=== PATIENT | female | born 1955 | race Hispanic/Latino ===

== ENCOUNTER 2016-10-25 14:54 | Emergency (ER) | payer SELFPAY ==
[2016-10-25] MEDS ORDERED: Ketorolac Tromethamine 60 MG/2 ML VIAL ONE (15:21)
[2016-10-25] MEDS ORDERED: predniSONE 20 MG TAB ONE (16:05)
--- NOTE | 2016-10-25 16:23 | ERRECORD ---
[facility] EMERGENCY RECORD HPI SHOULDER (16:06 JPIP) CHIEF COMPLAINT: Patient presents for evaluation of pain, to the right shoulder. HISTORIAN: History provided by patient. MECHANISM OF INJURY: Unknown mechanism. LOCATION: Symptoms are localized, most severe in the acromioclavicular joint, Patient is right handed. QUALITY: Pain is dull in nature. SEVERITY: Current severity of pain rated as 10/10. TIME COURSE: Sudden onset of symptoms, 1, hours prior to arrival, There has been no change in the patient's symptoms over time, are constant. ASSOCIATED WITH: No associated clavicle pain, No associated coolness to touch, Associated with decreased range of motion, to the right shoulder, Associated with decreased use, No associated distal neuro complaint, No associated erythema, No associated open wounds, No associated swelling, No associated warmth. EXACERBATED BY: Patient's condition exacerbated by movement. RELIEVED BY: Patient's condition relieved by nothing. ROS (16:09 JPIP) CARDIOVASCULAR: Historian denies chest pain. RESPIRATORY: Historian denies cough, denies shortness of breath. GI: Historian denies abdominal pain, denies nausea, denies vomiting. GENITOURINARY FEMALE: Historian denies dysuria, denies frequency, denies urgency. MUSCULOSKELETAL: Historian reports arthralgias, denies back pain. SKIN: Historian denies rash, denies skin changes, denies skin lesions. NEUROLOGIC: Historian denies paresthesias. NOTES: All systems reviewed, negative except as described above. PAST MEDICAL HISTORY MEDICAL HISTORY: Past medical history includes pulmonary disease, asthma, Flu vaccine not up to date,Tetanus immunization up to date,. Pneumococcal vaccine not up to date, Past medical history includes history of hypertension, which has been treated, Past medical history includes musculoskeletal disorder, osteoarthritis, rheumatoid arthritis, FIBROMYALGIA, CARPAL TUNNEL, "POOR CIRCULATION TO FEET". NEUROPATHY. REVIEWED 10/25/16. (15:14 LGIB) FEMALE SURGICAL HISTORY: Surgical history of cholecystectomy, Surgical history of tubal ligation, CARPAL TUNNEL SURGERY. REVIEWED 10/26/16. (15:14 LGIB) PSYCHIATRIC HISTORY: No previous psychiatric history. REVIEWED 10/25/16. (15:14 LGIB) SOCIAL HISTORY: Patient denies alcohol use, Patient denies drug use, Patient has no smoking history. (15:14 LGIB) &a-1R&a+25V*p+0X*[id number]*c202B*c15G*c2P*p-0X&a-25V&a+1R Name: Ajit Slater : 1955 F61 MedRec: [id number] AcctNum: [id number] Prepared: Tere Oct 25, 2016 16:19 by Interface Page 1 of 4 pMD [facility] EMERGENCY RECORD FAMILY HISTORY: Unknown family histroy, Paternal history of cardiac disease:, Family history includes coronary artery disease, father, Family history includes cerebral vascular accident, mother, Family history includes diabetes, sibling. REVIEWED 08/23/15. (15:14 LGIB) NOTES: Nursing records reviewed, Old chart reviewed, Medication list reviewed. (16:10 JPIP) KNOWN ALLERGIES No Known Allergies CURRENT MEDICATIONS (15:45 LGIB) Advair Diskus: BLISTER, WITH INHALATION DEVICE : Strength - 250 mcg-50 mcg/Dose : INHALATION Patient Dose: 2 puff(s) 2 times a day. meloxicam: TABLET : Strength - 7.5 mg : ORAL Patient Dose: 1 tab(s) Oral. potassium chloride: TABLET, EXT RELEASE, PARTICLES/CRYSTALS : Strength - 20 mEq : ORAL Patient Dose: 1 tab(s) Oral once a day. Proventil HFA: HFA AEROSOL WITH ADAPTER (GRAM) : Strength - 90 mcg : INHALATION Patient Dose: 1 puff(s) Oral. ranitidine HCl: TABLET : Strength - 300 mg : ORAL Patient Dose: 1 tab(s) Oral once a day. Mobic: TABLET : Strength - 7.5 mg : ORAL Patient Dose: 1 tab(s) Oral 1 to 2 times a day.as needed for pain. methotrexate sodium: TABLET : Strength - 2.5 mg : ORAL Patient Dose: unk mg Oral. VITAL SIGNS VITAL SIGNS: BP: 167/101, Pulse: 91, Resp: 22, Temp: 98.4 (Oral), Pain: 10, O2 sat: 96 on Room Air, Time: 10/25/2016 15:11. (15:11 LGIB) Pain: 6, Time: 10/25/2016 15:55. (15:55 LGIB) BP: 120/80, Pulse: 88, Resp: 18 (Non-Labored), Pain: 5, O2 sat: 95 on Room Air, Time: 10/25/2016 16:15. (16:15 LGIB) PHYSICAL EXAM (16:09 JPIP) CONSTITUTIONAL: Vital Signs Reviewed, Patient afebrile, Pulse normal, Blood pressure, hypertensive, Respiratory rate normal, Patient appears, in moderate pain distress, Patient alert and oriented to person, place and time, Nursing notes reviewed. HEAD: Head exam included findings of head atraumatic, &a-1R&a+25V*p+0X*m2615A*c202B*c15G*c2P*p-0X&a-25V&a+1R Name: Ajit Slater : 1955 F61 MedRec: [id number] AcctNum: [id number] Prepared: Tere Oct 25, 2016 16:19 by Interface Page 2 of 4 pMD [facility] RECORD normocephalic. EYES: Eye exam included findings of eyelids normal to inspection, Conjunctiva normal, Sclera normal, no periorbital ecchymosis, no periorbital edema, no periorbital erythema. NECK: Neck exam included findings of normal range of motion. RESPIRATORY CHEST: Respiratory exam included findings of no respiratory distress, Breath sounds clear, No wheezing, No rales, No rhonchi, Breath sounds not absent, Breath sounds not diminished. CARDIOVASCULAR: Cardiovascular exam included findings of heart rate regular rate and rhythm, Heart sounds normal. ABDOMEN FEMALE: Abdominal exam included findings of abdomen nontender, Liver normal, Spleen normal. UPPER EXTREMITY: Right clavicle exam normal, no obvious deformity, no swelling, no tenderness, Right shoulder exam included findings of, tenderness, active range of motion abnormal, passive range of motion abnormal, capillary refill less than 2 seconds, maximum tenderness over the R AC joint. NEURO: Wayne coma scale 15, Neuro exam findings include patient oriented to person, place and time. SKIN: Skin exam included findings of skin warm, dry, and normal in color. PSYCHIATRIC: Psychiatric exam included findings of patient oriented to person place and time, Normal affect. RADIOLOGYINTERPRETATION (15:41 JPIP) UPPER EXTERMITIES: Radiological interpretation of, the right shoulder shows, no fracture, no dislocation, no foreign body, however, Degenerative joint disease noted, nl ribs, nl lung. MIDDLE CARD TENDER: Preliminary review of x-rays by, ED Physician. MEDICATION ADMINISTRATION SUMMARY Drug Name: Spencer, Dose Ordered: 10 mg, Route: Oral, Status: Canceled, Time: 15:46 10/25/2016, Drug Name: predniSONE oral, Dose Ordered: 60 mg, Route: Oral, Status: Given, Time: 16:16 10/25/2016, Drug Name: Toradol intramuscular, Dose Ordered: 60 mg, Route: Intramuscular, Status: Given, Time: 15:24 10/25/2016, Detailed record available in Medication Service section. PROBLEM LIST No recorded problems DIAGNOSIS (16:05 JPIP) FINAL: PRIMARY: shoulder pain, ADDITIONAL: RHEUMATOID ARTHRITIS UNSPECIFIED - exacerbation. PRESCRIPTION (16:04 JPIP) &a-1R&a+25V*p+0X*[id number]*c202B*c15G*c2P*p-0X&a-25V&a+1R Name: Ajit Slater : 1955 F61 MedRec: [id number] AcctNum: [id number] Prepared: MonOct 25, 2016 16:19 by Interface Page 3 of 4 pMD [facility] RECORD Medrol (Lei): TABLET, DOSE PACK : 4 mg : ORAL : Quantity: 1 Unit: tab(s) Route: ORAL Schedule: See Notes Dispense: 1 May substitute. Refills: No Refills . NOTES: Follow schedule on Dose Pack No refills. DISPOSITION PATIENT: Disposition Type: Discharge, Disposition: *Discharge Home, Condition: Good. (16:05 JPIP) Patient left the department. (16:17 LGIB) Serna: JPIP=DO Aguilar Joseph LGIB=NI Weeks, Mildred &a-1R&a+25V*p+0X*[id number]*c202B*c15G*c2P*p-0X&a-25V&a+1R Name: Ajit Slater : 1955 F61 MedRec: [id number] AcctNum: [id number] Prepared: sukhwinder Oct 25, 2016 16:19 by Interface Page 4 of 4 pMD MTDD
--- NOTE | 2016-10-25 21:51 | RAD ---
RIGHT SHOULDER THREE VIEWS 10/25/16 No fracture, dislocation, or AC joint widening was seen. Some mild degenerative changes are seen in the AC joint. There are no periarticular calcifications. The adjacent lung is clear. IMPRESSION: Minor degenerative changes of the AC joint. POS: HOME
== END 2016-10-25 16:16 | disposition home or self-care (01) ==
LOC: BURERS 14:54
DX: M06.9 Rheumatoid arthritis, unspecified (principal); J45.909 Unspecified asthma, uncomplicated; I10 Essential (primary) hypertension
CPT/HCPCS: 96372; J1885; J7506

== ENCOUNTER 2016-11-30 20:26 | Emergency (ER) | payer SELFPAY ==
[2016-11-30] MEDS ORDERED: Triamcinolone 40 MG/ML VIAL ONE (20:50)
[2016-11-30] MEDS ORDERED: hydrOXYzine 25 MG TAB ONE (20:50)
[2016-11-30 21:11] LABS: #Basophils 0.1 thou/uL (0.0-0.2); #Eosinphils 0.3 thou/uL (0.0-0.7); #Monocytes 0.8 thou/uL (0.11-0.59); #Neutrophils 6.4 thou/uL (1.40-6.50); %Eosinophils 2.7 % (0.0-10.0); %Monocytes 8.4 % (0.0-10.0); Hematocrit 40.3 % (36.0-47.0); Mean Platelet Volume 7.1 fL (7.4-10.4); Red Blood Cell (RBC) Count 4.24 mill/uL (4.20-5.40); White Blood Cell (WBC) Count 9.6 thou/uL (4.8-10.8)
[2016-11-30 21:34] LABS: Anion Gap 14 mmol/L (10-20); BUN (Urea Nitrogen) 12 mg/dL (9.8-20.1); Calc. Creatinine Clearance 0 mL/min (70-130); Calcium 8.5 mg/dL (7.8-10.44); Carbon Dioxide 23 mmol/L (23-31); Chloride 110 mmol/L (98-107); Estimated GFR-MDRD 78
[2016-11-30] MEDS ORDERED: Triamcinolone 0.1% Cream 15 GM TUBE TOP SCH (22:00)
[2016-11-30] MEDS ORDERED: methylPREDNISolone Acetate 40 mg/ml Vial ONE (22:11)
== END 2016-11-30 22:28 | disposition home or self-care (01) ==
LOC: BURERS 20:26
DX: T78.40XA Allergy, unspecified, initial encounter (principal); M25.562 Pain in left knee; M25.561 Pain in right knee; J45.909 Unspecified asthma, uncomplicated; I10 Essential (primary) hypertension; X58.XXXA Exposure to other specified factors, initial encounter
CPT/HCPCS: 36415; 80048; 85025; 96372; J1030; J3301

== ENCOUNTER 2016-12-08 20:41 | Emergency (ER) | payer SELFPAY ==
[2016-12-08] MEDS ORDERED: Fluorescein Opthalmic Strip ONE (20:50)
[2016-12-08] MEDS ORDERED: Tetracaine HCl 0.5% Ophth Soln 2 ML Bottle ONE (20:50)
[2016-12-08] MEDS ORDERED: Cyclopentolate 1% Opth Drop 2 ML BOT ONE (21:03)
== END 2016-12-08 21:16 | disposition home or self-care (01) ==
LOC: BURERS 20:41
DX: S05.01XA Injury of conjunctiva and corneal abrasion without foreign body, right eye, initial encounter (principal); J45.909 Unspecified asthma, uncomplicated; I10 Essential (primary) hypertension; M19.90 Unspecified osteoarthritis, unspecified site; F17.290 Nicotine dependence, other tobacco product, uncomplicated; X58.XXXA Exposure to other specified factors, initial encounter
CPT/HCPCS: 99283

== ENCOUNTER 2017-01-04 19:10 | Emergency (ER) | payer SELFPAY | END 2017-01-04 19:29 | disposition home or self-care (01) | LOC: BURERS 19:10 | DX: S01.512A Laceration without foreign body of oral cavity, initial encounter (principal); J45.909 Unspecified asthma, uncomplicated; I10 Essential (primary) hypertension; M06.9 Rheumatoid arthritis, unspecified; F17.210 Nicotine dependence, cigarettes, uncomplicated; X58.XXXA Exposure to other specified factors, initial encounter ==

== ENCOUNTER 2017-02-21 18:21 | Emergency (ER) | payer SELFPAY ==
[2017-02-21] MEDS ORDERED: predniSONE 20 MG TAB ONE (18:38)
[2017-02-21] MEDS ORDERED: Promethazine HCl 25 MG/ML VIAL ONE (18:38)
== END 2017-02-21 19:40 | disposition home or self-care (01) ==
LOC: BURERS 18:21
DX: M06.9 Rheumatoid arthritis, unspecified (principal); J45.909 Unspecified asthma, uncomplicated; I10 Essential (primary) hypertension; M19.90 Unspecified osteoarthritis, unspecified site; F17.210 Nicotine dependence, cigarettes, uncomplicated
CPT/HCPCS: 96372; J1170; J2550; J7506

== ENCOUNTER 2017-02-22 18:22 | Emergency (ER) | payer SELFPAY ==
[2017-02-22] MEDS ORDERED: predniSONE 20 MG TAB ONE (18:37)
[2017-02-22] MEDS ORDERED: diphenhydrAMINE HCl 25 MG CAP ONE (18:37)
[2017-02-22] MEDS ORDERED: Ketorolac Tromethamine 60 MG/2 ML VIAL ONE (18:38)
[2017-02-22 18:50] LABS: #Basophils 0.1 thou/uL (0.0-0.2); #Eosinphils 0.1 thou/uL (0.0-0.7); #Lymphocytes 2.8 thou/uL (1.20-3.40); #Monocytes 1.4 thou/uL (0.11-0.59); %Basophils 0.6 % (0.0-1.0); %Eosinophils 0.3 % (0.0-10.0); %Lymphocytes 14.4 % (21.0-51.0); %Monocytes 7.5 % (0.0-10.0); %Neutrophils 77.3 % (42.0-75.0); Mean Corpuscular HGB CONC 32.3 g/dL (32.0-36.0); Mean Corpuscular Hemoglobin 31.6 pg (27.0-31.0); Mean Corpuscular Volume 97.9 fl (81.0-99.0); Mean Platelet Volume 8.8 fL (7.4-10.4); Platelet Count 243 thou/uL (130-400); RBC Distribution Width 14.5 % (11.5-14.5); Red Blood Cell (RBC) Count 4.12 mill/uL (4.20-5.40); White Blood Cell (WBC) Count 19.4 thou/uL (4.8-10.8)
[2017-02-22 18:56] LABS: INR-International Normal Ratio 0.9; Prothrombin Time 12.4 SEC (12.0-14.7)
[2017-02-22 18:57] LABS: PTT 22.7 SEC (22.9-36.1)
[2017-02-22 19:08] LABS: ALT (SGPT) 23 U/L (8-55); AST (SGOT) 14 U/L (5-34); Albumin 3.8 g/dL (3.4-4.8); Alkaline Phosphatase 75 U/L (40-150); Anion Gap 18 mmol/L (10-20); BUN (Urea Nitrogen) 21 mg/dL (9.8-20.1); Bilirubin, Total 0.2 mg/dL (0.2-1.2); Calc. Creatinine Clearance 0 mL/min (70-130); Calcium 8.5 mg/dL (7.8-10.44); Carbon Dioxide 21 mmol/L (23-31); Chloride 110 mmol/L (98-107); Estimated GFR-MDRD 75; Globulin 2.7 g/dL (2.4-3.5); Glucose 162 mg/dL (80-115); Potassium 3.6 mmol/L (3.5-5.1); Protein, Total 6.5 g/dL (6.0-8.3); Sodium 145 mmol/L (136-145)
== END 2017-02-22 19:20 | disposition home or self-care (01) ==
LOC: BURERS 18:22
DX: S60.861A Insect bite (nonvenomous) of right wrist, initial encounter (principal); J45.909 Unspecified asthma, uncomplicated; I10 Essential (primary) hypertension; M06.9 Rheumatoid arthritis, unspecified; G62.9 Polyneuropathy, unspecified; F17.210 Nicotine dependence, cigarettes, uncomplicated; W57.XXXA Bitten or stung by nonvenomous insect and other nonvenomous arthropods, initial encounter
CPT/HCPCS: 36415; 80053; 83690; 85025; 85610; 85730; 96372; J1885; J7506

== ENCOUNTER 2017-03-09 16:34 | Emergency (ER) | payer SELFPAY ==
[2017-03-09] MEDS ORDERED: predniSONE 20 MG TAB ONE (16:57)
[2017-03-09] MEDS ORDERED: Promethazine HCl 25 MG/ML VIAL ONE (16:57)
[2017-03-09] MEDS ORDERED: Ketorolac Tromethamine 30 MG/ML VIAL ONE (17:45)
[2017-03-09] MEDS ORDERED: Sulfameth/Trimethoprim DS 800-160mg TAB ONE (18:49)
== END 2017-03-09 19:01 | disposition home or self-care (01) ==
LOC: BURERS 16:34
DX: M54.41 Lumbago with sciatica, right side (principal); M06.9 Rheumatoid arthritis, unspecified; I10 Essential (primary) hypertension; J45.909 Unspecified asthma, uncomplicated; G62.9 Polyneuropathy, unspecified; F17.210 Nicotine dependence, cigarettes, uncomplicated
CPT/HCPCS: 96372; J1170; J1885; J2550; J7506

== ENCOUNTER 2017-03-11 14:45 | Emergency (ER) | payer SELFPAY ==
[~2017-03-11 14:45] MED LIST: Iopamidol 370 76% 100 ML VIAL ONE
[2017-03-11] MEDS ORDERED: Nitroglycerin 0.4 MG TAB (25 Tab Bottle) ONE (15:12)
[2017-03-11] MEDS ORDERED: Furosemide 40 MG/4 ML VIAL ONE (15:13)
[2017-03-11 15:25] LABS: #Basophils 0.1 thou/uL (0.0-0.2); #Eosinphils 0.2 thou/uL (0.0-0.7); #Lymphocytes 2.5 thou/uL (1.20-3.40); #Monocytes 0.5 thou/uL (0.11-0.59); #Neutrophils 9.8 thou/uL (1.40-6.50); %Basophils 0.7 % (0.0-1.0); %Eosinophils 1.7 % (0.0-10.0); %Lymphocytes 19.2 % (21.0-51.0); %Neutrophils 74.5 % (42.0-75.0); Hemoglobin 12.6 g/dL (12.0-16.0); Mean Corpuscular HGB CONC 32.9 g/dL (32.0-36.0); Mean Corpuscular Hemoglobin 31.8 pg (27.0-31.0); Mean Corpuscular Volume 96.6 fl (81.0-99.0); Mean Platelet Volume 9.4 fL (7.4-10.4); Platelet Count 243 thou/uL (130-400); RBC Distribution Width 14.6 % (11.5-14.5); Red Blood Cell (RBC) Count 3.96 mill/uL (4.20-5.40); White Blood Cell (WBC) Count 13.1 thou/uL (4.8-10.8)
[2017-03-11 15:39] LABS: CKMB 1.1 ng/mL (0-6.6); Troponin I Less than 0.010 ng/mL (< 0.028)
[2017-03-11 15:53] LABS: Base Excess 2.8 mEq/L (-2 - +2); Hemoglobin (Hb) 11.9 g/dL (11.7-16.0)
[2017-03-11 16:04] LABS: PTT 26.6 SEC (22.9-36.1); Prothrombin Time 12.9 SEC (12.0-14.7)
[2017-03-11 16:05] LABS: D-Dimer Test 1.24 *mcg/mL (0.27-0.43)
[2017-03-11] MEDS ORDERED: Nitroglycerin 2% Ointment 1 INCH/1 GM Packet ONE (16:10)
[2017-03-11 16:11] LABS: Sodium 142 mmol/L (136-145)
[2017-03-11 16:12] LABS: Anion Gap 14 mmol/L (10-20); BUN (Urea Nitrogen) 16 mg/dL (9.8-20.1); Bilirubin, Total 0.2 mg/dL (0.2-1.2); Calc. Creatinine Clearance 0 mL/min (70-130); Calcium 8.1 mg/dL (7.8-10.44); Carbon Dioxide 22 mmol/L (23-31); Chloride 110 mmol/L (98-107); Estimated GFR-MDRD 74; Glucose 144 mg/dL (80-115); Potassium 4.2 mmol/L (3.5-5.1)
[2017-03-11 16:13] LABS: ALT (SGPT) 21 U/L (8-55); AST (SGOT) 15 U/L (5-34); Albumin 3.4 g/dL (3.4-4.8); Alkaline Phosphatase 77 U/L (40-150); Globulin 2.7 g/dL (2.4-3.5); Protein, Total 6.1 g/dL (5.8-8.1)
--- NOTE | 2017-03-11 17:37 | CT ---
CT ANGIO OF THE CHEST 03/11/[address] of the chest was performed after a bolus of IV contrast for evaluation of chest pain, dysp tammy, and an elevated D-dimer. Axial slices were acquired after a bolus of contrast, then oblique cor onal reformations through the pulmonary arteries were obtained. There were no filling defects in the pulmonary arteries to suggest emboli. It is difficult to assess the coronary arteries for calcification given the contrast present, but contrast does flow into eac h coronary system. There is no sign of aortic dissection or aneurysm. There is no pericardial effusi on. No mediastinal mass or adenopathy was seen. The lungs are clear. No infiltrate, effusion, or audrey ss sign of failure was found. There are no focal consolidations. Scan into the upper abdomen displayed some of the upper abdominal structures. The liver is a bit gen erous in size and somewhat low density suggesting diffuse fatty infiltration. Arteriosclerotic miles e is present in the patient's aorta. The top slice or two goes through the lower portion of the patient's thyroid gland. It seems a littl e inhomogeneous, particularly in the right lobe. I cannot exclude pathology here. It might be crawford t o do an elective ultrasound of the thyroid gland to be sure there is nothing here to be found. Looki ng back at a 09/28/13 CT angio of the chest, the thyroid was not displayed in as much detail, there is little comparison. IMPRESSION: 1. No evidence of pulmonary embolism or other acute cardiopulmonary process. 2. Some inhomogeneity of the thyroid gland, particularly the right lobe. Elective thyroid ultra sound suggested. Findings discussed with Dr. Lepe at 1710 on 03/11/17. POS: HOME
--- NOTE | 2017-03-11 17:38 | RAD ---
PORTABLE CHEST 03/11/17 An AP portable film at 1505 shows a normal sized heart for projection and body habitus. No lobar con solidations were appreciated, though it is difficult to assess the lower lobes well. While there is seemingly little prominence to the markings, I believe this is mostly due to overlying soft tissues. IMPRESSION: No focal pulmonary findings. POS: HOME
== END 2017-03-11 17:20 | disposition short-term general hospital (02) ==
LOC: BURERS 14:45
DX: R07.9 Chest pain, unspecified (principal); R06.02 Shortness of breath; I10 Essential (primary) hypertension; J45.909 Unspecified asthma, uncomplicated; M06.9 Rheumatoid arthritis, unspecified; F17.290 Nicotine dependence, other tobacco product, uncomplicated
CPT/HCPCS: 36415; 71010; 71275; 80053; 82553; 82805; 83605; 83880; 84484; 85025; 85379; 85610; 85730; 87040; 93005; 94640; 94760; 96374; A4216; J1940; J7620

== ENCOUNTER 2017-03-20 22:13 | Emergency (ER) | payer SELFPAY ==
[2017-03-21] MEDS ORDERED: Promethazine HCl 25 MG/ML VIAL ONE (00:46)
[2017-03-21 00:53] LABS: #Basophils 0.1 thou/uL (0.0-0.2); #Eosinphils 0.1 thou/uL (0.0-0.7); #Lymphocytes 1.5 thou/uL (1.20-3.40); #Monocytes 0.6 thou/uL (0.11-0.59); #Neutrophils 9.5 thou/uL (1.40-6.50); %Basophils 0.7 % (0.0-1.0); %Eosinophils 0.7 % (0.0-10.0); %Lymphocytes 12.6 % (21.0-51.0); %Monocytes 4.7 % (0.0-10.0); %Neutrophils 81.3 % (42.0-75.0); Hemoglobin 11.9 g/dL (12.0-16.0); Mean Corpuscular HGB CONC 33.7 g/dL (32.0-36.0); Mean Corpuscular Hemoglobin 32.1 pg (27.0-31.0); Mean Corpuscular Volume 95.1 fl (81.0-99.0); Mean Platelet Volume 7.9 fL (7.4-10.4); Platelet Count 256 thou/uL (130-400); Red Blood Cell (RBC) Count 3.72 mill/uL (4.20-5.40); White Blood Cell (WBC) Count 11.6 thou/uL (4.8-10.8)
[2017-03-21] MEDS ORDERED: methylPREDNISolone Sod Succ/PF 125 MG/2 ML VIAL ONE (01:52)
== END 2017-03-21 02:12 | disposition home or self-care (01) ==
LOC: BURERS 22:13
DX: M06.9 Rheumatoid arthritis, unspecified (principal); J45.909 Unspecified asthma, uncomplicated; I10 Essential (primary) hypertension; G62.9 Polyneuropathy, unspecified; F17.210 Nicotine dependence, cigarettes, uncomplicated; Z79.2 Long term (current) use of antibiotics; Z79.52 Long term (current) use of systemic steroids; Z79.899 Other long term (current) drug therapy
CPT/HCPCS: 36415; 85025; 85379; 85652; 96372; J1170; J2550; J2930

== ENCOUNTER 2017-06-07 15:44 | Emergency (ER) | payer SELFPAY ==
[2017-06-07] MEDS ORDERED: predniSONE 20 MG TAB ONE (16:01)
[2017-06-07] MEDS ORDERED: Promethazine HCl 25 MG/ML VIAL ONE (16:01)
[2017-06-07] MEDS ORDERED: Ketorolac Tromethamine 30 MG/ML VIAL ONE (16:39)
== END 2017-06-07 17:26 | disposition home or self-care (01) ==
LOC: BURERS 15:44
DX: M06.9 Rheumatoid arthritis, unspecified (principal); J45.909 Unspecified asthma, uncomplicated; I10 Essential (primary) hypertension; M19.90 Unspecified osteoarthritis, unspecified site; F17.290 Nicotine dependence, other tobacco product, uncomplicated
CPT/HCPCS: 96372; J1170; J1885; J2550; J7506

== ENCOUNTER 2017-09-10 10:49 | Emergency (ER) | payer SELFPAY ==
[2017-09-10] MEDS ORDERED: methylPREDNISolone Sod Succ/PF 125 MG/2 ML VIAL ONE (11:10)
[2017-09-10] MEDS ORDERED: Ketorolac Tromethamine 30 MG/ML VIAL ONE (11:10)
== END 2017-09-10 11:30 | disposition home or self-care (01) ==
LOC: BURERS 10:49
DX: M06.9 Rheumatoid arthritis, unspecified (principal); J45.909 Unspecified asthma, uncomplicated; I10 Essential (primary) hypertension; G62.9 Polyneuropathy, unspecified; Z87.891 Personal history of nicotine dependence; Z79.52 Long term (current) use of systemic steroids; Z79.891 Long term (current) use of opiate analgesic; Z79.899 Other long term (current) drug therapy
CPT/HCPCS: 96372; J1885; J2930

== ENCOUNTER 2017-09-27 22:38 | Emergency (ER) | payer SELFPAY ==
[2017-09-27] MEDS ORDERED: Ketorolac Tromethamine 30 MG/ML VIAL ONE (23:15)
[2017-09-27] MEDS ORDERED: predniSONE 20 MG TAB ONE (23:15)
== END 2017-09-27 23:25 | disposition home or self-care (01) ==
LOC: BURERS 22:38
DX: M06.9 Rheumatoid arthritis, unspecified (principal); G62.9 Polyneuropathy, unspecified; G56.00 Carpal tunnel syndrome, unspecified upper limb; J45.909 Unspecified asthma, uncomplicated; I10 Essential (primary) hypertension; M19.90 Unspecified osteoarthritis, unspecified site; Z87.891 Personal history of nicotine dependence
CPT/HCPCS: 96372; J1885; J7506

== ENCOUNTER 2017-10-07 23:24 | Emergency (ER) | payer SELFPAY ==
[2017-10-07] MEDS ORDERED: methylPREDNISolone Sod Succ/PF 125 MG/2 ML VIAL ONE (23:50)
[2017-10-08 00:26] LABS: PTT 24.8 SEC (22.9-36.1); Prothrombin Time 13.3 SEC (12.0-14.7)
[2017-10-08 00:27] LABS: #Basophils 0.1 thou/uL (0.0-0.2); #Lymphocytes 1.5 thou/uL (1.20-3.40); #Monocytes 0.8 thou/uL (0.11-0.59); #Neutrophils 11.8 thou/uL (1.40-6.50); %Basophils 0.5 % (0.0-1.0); %Lymphocytes 10.2 % (21.0-51.0); %Monocytes 5.7 % (0.0-10.0); %Neutrophils 83.5 % (42.0-75.0); Hemoglobin 13.7 g/dL (12.0-16.0); Mean Corpuscular HGB CONC 32.7 g/dL (32.0-36.0); Mean Corpuscular Hemoglobin 30.3 pg (27.0-31.0); Mean Corpuscular Volume 92.6 fl (81.0-99.0); Mean Platelet Volume 8.7 fL (7.4-10.4); Platelet Count 190 thou/uL (130-400); RBC Distribution Width 14.6 % (11.5-14.5); Red Blood Cell (RBC) Count 4.53 mill/uL (4.20-5.40); White Blood Cell (WBC) Count 14.2 thou/uL (4.8-10.8)
[2017-10-08 00:28] LABS: D-Dimer Test 1.79 *mcg/mL (0.27-0.43)
[2017-10-08 00:35] LABS: ALT (SGPT) 27 U/L (8-55); AST (SGOT) 34 U/L (5-34); Albumin 3.6 g/dL (3.4-4.8); Alkaline Phosphatase 106 U/L (40-150); Anion Gap 18 mmol/L (10-20); BUN (Urea Nitrogen) 14 mg/dL (9.8-20.1); Bilirubin, Total 0.3 mg/dL (0.2-1.2); Calc. Creatinine Clearance 0 mL/min (70-130); Calcium 8.4 mg/dL (7.8-10.44); Carbon Dioxide 20 mmol/L (23-31); Chloride 104 mmol/L (98-107); Estimated GFR-MDRD 72; Globulin 2.9 g/dL (2.4-3.5); Glucose 164 mg/dL (80-115); Potassium 3.6 mmol/L (3.5-5.1); Protein, Total 6.5 g/dL (6.0-8.3); Sodium 138 mmol/L (136-145)
[2017-10-08 00:37] LABS: CKMB 0.6 ng/mL (0-6.6); Troponin I Less than 0.010 ng/mL (< 0.028)
[2017-10-08] MEDS ORDERED: cefTRIAXone\\ROCEPHIN 1 GM VIAL ONE (01:24)
[2017-10-08] MEDS ORDERED: Sodium Chloride 0.9% 100 ML ONE (01:24)
[2017-10-08] MEDS ORDERED: Oseltamivir 75 MG CAP ONE (01:44)
--- NOTE | 2017-10-08 09:34 | RAD ---
AP PORTABLE CHEST: 10/08/2017 0034 HOURS COMPARISON: 03/11/2017 FINDINGS: The heart size is unchanged. There is no gross pulmonary edema, though the vasculature seems very sl ightly prominent. I cannot rule out very early congestive change, but serial follow-up exams would p robably be helpful. There are no effusions or focal pulmonary infiltrates. Slight prominence of the left hilum is thought to be due to the patient being turned slightly, which he is. IMPRESSION: Stable heart size. Very slight prominence of vasculature. If clinical symptoms suggest mild congestive change, then serial follow-up films could be useful. POS: HOME
== END 2017-10-08 01:55 | disposition short-term general hospital (02) ==
LOC: BURERS 23:24
DX: A41.9 Sepsis, unspecified organism (principal); J18.9 Pneumonia, unspecified organism; J10.1 Influenza due to other identified influenza virus with other respiratory manifestations; R09.02 Hypoxemia; E66.9 Obesity, unspecified; J45.909 Unspecified asthma, uncomplicated; I10 Essential (primary) hypertension; M19.90 Unspecified osteoarthritis, unspecified site; M06.9 Rheumatoid arthritis, unspecified; Z87.891 Personal history of nicotine dependence; G62.9 Polyneuropathy, unspecified; Z79.891 Long term (current) use of opiate analgesic; Z79.52 Long term (current) use of systemic steroids; Z79.899 Other long term (current) drug therapy
CPT/HCPCS: 36415; 71045; 80053; 82553; 83605; 83880; 84484; 85025; 85379; 85610; 85730; 87040; 93005; 94760; 96374; 96375; J0696; J2930; J7050; J7620

== ENCOUNTER 2017-11-22 12:46 | Emergency (ER) | payer SELFPAY ==
[2017-11-22] MEDS ORDERED: predniSONE 20 MG TAB ONE (13:09)
== END 2017-11-22 13:25 | disposition home or self-care (01) ==
LOC: BURERS 12:46
DX: M06.9 Rheumatoid arthritis, unspecified (principal); J45.909 Unspecified asthma, uncomplicated; I10 Essential (primary) hypertension; Z87.891 Personal history of nicotine dependence
CPT/HCPCS: 99283; J7506

== ENCOUNTER 2018-01-24 00:40 | Emergency (ER) | payer SELFPAY ==
[2018-01-24] MEDS ORDERED: methylPREDNISolone Sod Succ/PF 125 MG/2 ML VIAL ONE (01:04)
[2018-01-24] MEDS ORDERED: Ketorolac Tromethamine 30 MG/ML VIAL ONE (01:05)
== END 2018-01-24 01:20 | disposition home or self-care (01) ==
LOC: BURERS 00:40
DX: M06.9 Rheumatoid arthritis, unspecified (principal); J45.909 Unspecified asthma, uncomplicated; I10 Essential (primary) hypertension; Z87.891 Personal history of nicotine dependence; Z79.899 Other long term (current) drug therapy
CPT/HCPCS: 96372; J1885; J2930

== ENCOUNTER 2018-02-21 08:22 | Emergency (ER) | payer SELFPAY ==
[2018-02-21] MEDS ORDERED: Ondansetron HCl/PF 4 MG/2 ML Vial ONE (08:38)
[2018-02-21] MEDS ORDERED: Nitroglycerin 0.4 MG TAB (25 Tab Bottle) ONE (08:38)
[2018-02-21 08:53] LABS: #Basophils 0.1 thou/uL (0.0-0.2); #Eosinphils 0.1 thou/uL (0.0-0.7); #Monocytes 0.6 thou/uL (0.11-0.59); #Neutrophils 13.3 thou/uL (1.40-6.50); %Basophils 0.7 % (0.0-1.0); %Eosinophils 0.7 % (0.0-10.0); %Lymphocytes 6.5 % (21.0-51.0); %Monocytes 3.9 % (0.0-10.0); %Neutrophils 88.2 % (42.0-75.0); Hemoglobin 14.6 g/dL (12.0-16.0); Mean Corpuscular HGB CONC 34.1 g/dL (32.0-36.0); Mean Corpuscular Hemoglobin 30.7 pg (27.0-31.0); Mean Corpuscular Volume 89.9 fl (81.0-99.0); Mean Platelet Volume 8.4 fL (7.4-10.4); Platelet Count 227 thou/uL (130-400); RBC Distribution Width 15.2 % (11.5-14.5); Red Blood Cell (RBC) Count 4.76 mill/uL (4.20-5.40); White Blood Cell (WBC) Count 15.1 thou/uL (4.8-10.8)
[2018-02-21 09:08] LABS: ALT (SGPT) 35 U/L (8-55); AST (SGOT) 43 U/L (5-34); Albumin 3.6 g/dL (3.4-4.8); Alkaline Phosphatase 118 U/L (40-150); Anion Gap 15 mmol/L (10-20); BUN (Urea Nitrogen) 17 mg/dL (9.8-20.1); Bilirubin, Total 0.5 mg/dL (0.2-1.2); CK (CPK) 39 U/L (29-168); Calc. Creatinine Clearance 0 mL/min (70-130); Calcium 8.3 mg/dL (7.8-10.44); Carbon Dioxide 22 mmol/L (23-31); Chloride 106 mmol/L (98-107); Estimated GFR-MDRD 83; Globulin 2.6 g/dL (2.4-3.5); Glucose 142 mg/dL (80-115); Potassium 3.4 mmol/L (3.5-5.1); Protein, Total 6.2 g/dL (6.0-8.3); Sodium 140 mmol/L (136-145)
[2018-02-21] MEDS ORDERED: Lidocaine Viscous Sol 2% 15 ml UD Cup ONE (09:08)
[2018-02-21] MEDS ORDERED: Pantoprazole 40 MG VIAL ONE (09:08)
[2018-02-21] MEDS ORDERED: Milk Of Magnesia 30 ML UDCUP ONE (09:08)
[2018-02-21 09:09] LABS: CKMB 0.9 ng/mL (0-6.6); Troponin I Less than 0.010 ng/mL (< 0.028)
--- NOTE | 2018-02-21 16:09 | RAD ---
PORTABLE CHEST: Date: 02-21-18 An AP portable film at 0905 is compared with a 10-08-17 study. FINDINGS: The heart is normal in size. There is no vascular congestion, edema, or pleural effusion. A little st reaking near the cardiac apex is probably a combination of scarring or fat pads. The mediastinum is u nremarkable. IMPRESSION: No acute thoracic findings. POS: [facility]
== END 2018-02-21 09:49 | disposition home or self-care (01) ==
LOC: BURERS 08:22
DX: K21.9 Gastro-esophageal reflux disease without esophagitis (principal); J45.909 Unspecified asthma, uncomplicated; I10 Essential (primary) hypertension; Z87.891 Personal history of nicotine dependence; Z79.899 Other long term (current) drug therapy
CPT/HCPCS: 71045; 80053; 82553; 84484; 85025; 93005; 94760; 96374; 96375; C9113; J2405

== ENCOUNTER 2018-03-15 22:03 | Emergency (ER) | payer SELFPAY ==
[2018-03-15] MEDS ORDERED: methylPREDNISolone Sod Succ/PF 125 MG/2 ML VIAL ONE (22:27)
== END 2018-03-15 23:14 | disposition home or self-care (01) ==
LOC: BURERS 22:03
DX: M06.9 Rheumatoid arthritis, unspecified (principal); I10 Essential (primary) hypertension; J45.909 Unspecified asthma, uncomplicated; Z87.891 Personal history of nicotine dependence; Z79.891 Long term (current) use of opiate analgesic; Z79.899 Other long term (current) drug therapy
CPT/HCPCS: 96372; J2930

== ENCOUNTER → 2018-04-28 | Emergency (ER) | payer SELFPAY ==
[~2018-04-28] MED LIST changes: -Iopamidol 370 76% 100 ML VIAL ONE; +predniSONE 20 MG TAB ONE
== END ==
LOC: BURERS 15:57
DX: M06.9 Rheumatoid arthritis, unspecified (principal); J45.909 Unspecified asthma, uncomplicated; I10 Essential (primary) hypertension; M19.90 Unspecified osteoarthritis, unspecified site; Z87.891 Personal history of nicotine dependence; Z79.899 Other long term (current) drug therapy; Z79.891 Long term (current) use of opiate analgesic
CPT/HCPCS: 96372; J7506

== ENCOUNTER 2018-08-11 16:21 | Emergency (ER) | payer SELFPAY ==
[2018-08-11] MEDS ORDERED: Dexamethasone 4 mg/ml Vial ONE (16:43)
== END 2018-08-11 16:55 | disposition home or self-care (01) ==
LOC: BURERS 16:21
DX: M06.9 Rheumatoid arthritis, unspecified (principal); J45.909 Unspecified asthma, uncomplicated; I10 Essential (primary) hypertension; G62.9 Polyneuropathy, unspecified; Z87.891 Personal history of nicotine dependence; Z79.891 Long term (current) use of opiate analgesic; Z79.899 Other long term (current) drug therapy
CPT/HCPCS: 96372; J1100

== ENCOUNTER 2018-08-18 14:08 | Emergency (ER) | payer SELFPAY ==
[2018-08-18] MEDS ORDERED: Sulfameth/Trimethoprim DS 800-160mg TAB ONE (14:57)
== END 2018-08-18 15:11 | disposition home or self-care (01) ==
LOC: BURERS 14:08
DX: L03.115 Cellulitis of right lower limb (principal); M19.90 Unspecified osteoarthritis, unspecified site; J45.909 Unspecified asthma, uncomplicated; I10 Essential (primary) hypertension; Z87.891 Personal history of nicotine dependence; Z79.899 Other long term (current) drug therapy
CPT/HCPCS: 99283

== ENCOUNTER 2018-10-14 22:34 | Emergency (ER) | payer MEDICARE, OTHER ==
[2018-10-14] MEDS ORDERED: predniSONE 20 MG TAB ONE (22:51)
== END 2018-10-14 22:56 | disposition home or self-care (01) ==
LOC: BURERS 22:34
DX: L29.9 Pruritus, unspecified (principal); T48.205A Adverse effect of unspecified drugs acting on muscles, initial encounter; J45.909 Unspecified asthma, uncomplicated; I10 Essential (primary) hypertension; Z87.891 Personal history of nicotine dependence; Z79.899 Other long term (current) drug therapy; Z79.51 Long term (current) use of inhaled steroids
CPT/HCPCS: 99282; J7506

== ENCOUNTER 2018-11-04 21:40 | Emergency (ER) | payer MEDICARE, OTHER ==
[2018-11-04] MEDS ORDERED: Morphine 4 MG/ML VIAL ONE ×3 (22:14→23:38)
[2018-11-04] MEDS ORDERED: Fentanyl 100 MCG/2 ML VIAL ONE (22:14)
[2018-11-04] MEDS ORDERED: Ondansetron PF 4 MG/2 ML Vial ONE ×2 (22:14→23:32)
[2018-11-04] MEDS ORDERED: methylPREDNISolone Sod Succ/PF 125 MG/2 ML VIAL ONE (22:15)
[2018-11-04 22:24] LABS: Hemoglobin 10.6 g/dL (12.0-16.0); Mean Corpuscular HGB CONC 31.8 g/dL (32.0-36.0); Mean Corpuscular Hemoglobin 26.8 pg (27.0-31.0); Mean Corpuscular Volume 84.4 fL (78.0-98.0); Mean Platelet Volume 7.7 fL (7.4-10.4); Platelet Count 292 thou/uL (130-400); RBC Distribution Width 19.1 % (11.5-14.5); Red Blood Cell (RBC) Count 3.94 mill/uL (4.20-5.40); White Blood Cell (WBC) Count 15.9 thou/uL (4.8-10.8)
[2018-11-04 22:33] LABS: ALT (SGPT) 17 U/L (8-55); AST (SGOT) 31 U/L (5-34); Albumin 3.4 g/dL (3.4-4.8); Alkaline Phosphatase 107 U/L (40-150); Anion Gap 13 mmol/L (10-20); BUN (Urea Nitrogen) 12 mg/dL (9.8-20.1); Bilirubin, Total 0.5 mg/dL (0.2-1.2); Calc. Creatinine Clearance 0 mL/min (70-130); Calcium 8.9 mg/dL (7.8-10.44); Carbon Dioxide 23 mmol/L (23-31); Chloride 107 mmol/L (98-107); Estimated GFR-MDRD 79; Globulin 2.6 g/dL (2.4-3.5); Glucose 135 mg/dL (80-115); Lipase 21 U/L (8-78); Potassium 3.9 mmol/L (3.5-5.1); Sodium 139 mmol/L (136-145)
[2018-11-04] MEDS ORDERED: Famotidine In NaCl 20 mg/50 ml Premix Bag ONE (22:39)
[2018-11-04 22:49] LABS: Anisocytosis SLIGHT = 6-15 cells (100X) (0-5/hpf); Band 3 % (5-11); Basophilic Stippling SLIGHT = 1-2 cells (100X) (None Seen); Eosinophils 7 % (0-10); Lymphocytes 11 % (21-51); MDiff Complete? YES; Metamyelocyte 1 % (0-0); Monocytes 6 % (0-10); Neutrophil 71 % (42-75); Platelet Morphology Comment Appears Adequate
[2018-11-04] MEDS ORDERED: Ketorolac Tromethamine 30 MG/ML VIAL ONE (23:32)
== END 2018-11-05 | disposition home or self-care (01) ==
LOC: BURERS 21:40
DX: R11.2 Nausea with vomiting, unspecified (principal); R19.7 Diarrhea, unspecified; M06.9 Rheumatoid arthritis, unspecified; J45.909 Unspecified asthma, uncomplicated; I10 Essential (primary) hypertension; Z87.891 Personal history of nicotine dependence; Z79.899 Other long term (current) drug therapy; Z79.51 Long term (current) use of inhaled steroids
CPT/HCPCS: 80053; 83690; 85025; 96365; 96375; 96376; J1885; J2270; J2405; J2930; J3010

== ENCOUNTER 2018-11-06 01:39 | Emergency (ER) | payer MEDICARE, OTHER ==
[2018-11-06] MEDS ORDERED: Nitroglycerin 0.4 MG TAB 1 EACH ONE (02:15)
[2018-11-06] MEDS ORDERED: Aspirin Chewable 81 MG TAB ONE (02:15)
[2018-11-06] MEDS ORDERED: Ondansetron PF 4 MG/2 ML Vial ONE (02:15)
[2018-11-06] MEDS ORDERED: Pantoprazole 40 MG VIAL ONE (02:15)
[2018-11-06 02:49] LABS: ALT (SGPT) 14 U/L (8-55); AST (SGOT) 18 U/L (5-34); Albumin 3.2 g/dL (3.4-4.8); Alkaline Phosphatase 90 U/L (40-150); Anion Gap 13 mmol/L (10-20); BUN (Urea Nitrogen) 13 mg/dL (9.8-20.1); Bilirubin, Total 0.3 mg/dL (0.2-1.2); Calc. Creatinine Clearance 0 mL/min (70-130); Calcium 8.6 mg/dL (7.8-10.44); Carbon Dioxide 23 mmol/L (23-31); Chloride 108 mmol/L (98-107); Estimated GFR-MDRD 78; Globulin 2.3 g/dL (2.4-3.5); Glucose 211 mg/dL (80-115); Potassium 3.1 mmol/L (3.5-5.1); Protein, Total 5.5 g/dL (6.0-8.3); Sodium 141 mmol/L (136-145)
[2018-11-06 02:50] LABS: Hemoglobin 9.6 g/dL (12.0-16.0); Mean Corpuscular HGB CONC 31.3 g/dL (32.0-36.0); Mean Corpuscular Hemoglobin 26.6 pg (27.0-31.0); Mean Corpuscular Volume 84.9 fL (78.0-98.0); Mean Platelet Volume 7.8 fL (7.4-10.4); Platelet Count 254 thou/uL (130-400); RBC Distribution Width 18.6 % (11.5-14.5)
[2018-11-06 02:55] LABS: #Basophils 0.1 thou/uL (0.0-0.2); #Lymphocytes 2.4 thou/uL (1.20-3.40); #Monocytes 0.8 thou/uL (0.11-0.59); #Neutrophils 11.7 thou/uL (1.40-6.50); %Basophils 0.6 % (0.0-1.0); %Eosinophils 0.3 % (0.0-10.0); %Lymphocytes 15.8 % (21.0-51.0); %Monocytes 5.4 % (0.0-10.0); %Neutrophils 77.9 % (42.0-75.0); Anisocytosis SLIGHT = 6-15 cells (100X) (0-5/hpf); Hypochromia SLIGHT = 6-15 cells (100X) (0-5/hpf); MDiff Complete? YES; Platelet Morphology Comment Appears Adequate
[2018-11-06] MEDS ORDERED: Potassium Chloride 20 MEQ TAB ONE (04:45)
[2018-11-06] MEDS ORDERED: Ketorolac Tromethamine 60 MG/2 ML VIAL ONE (05:05)
[2018-11-06] MEDS ORDERED: Lidocaine Viscous Sol 2% 15 ml UD Cup ONE (05:06)
[2018-11-06] MEDS ORDERED: Mag-Al Plus 1200 MG/1200 MG/120 MG/30 ML UDCUP ONE (05:06)
--- NOTE | 2018-11-06 07:49 | RAD ---
CHEST 1 VIEW: INDICATION: Chest pain. COMPARISON: Prior exam dated 02/21/2018. FINDINGS: There is cardiomegaly with pulmonary vascular congestion. No pleural effusion is evident. No defini te acute osseous abnormality is evident. IMPRESSION: Cardiomegaly with mild pulmonary vascular congestion. Findings can be related to early congestive he art failure. POS: [facility]
--- NOTE | 2018-11-06 08:06 | CT ---
CTA AORTIC DISSECTION PROTOCOL WITH IV CONTRAST AND 3D REFORMATTED IMAGING: COMPARISON: CT chest, abdomen, and pelvis dated 07/06/2012. FINDINGS: There are vascular calcifications involving the coronary artery and thoracic aorta. No aneurysmal change or dissection is seen involving the thoracic aorta. There is a stable area of fusiform ectasia involving the infrarenal abdominal aorta, measuring 2.5 x 2.9 cm in its greatest AP and mediolateral dimensions, whereas it measured 2.6 x 2.9 cm on the compar audrey in 2012. The visualized iliac bifurcations appear within normal limits. There are moderate calcifications inv olving the abdominal aorta. The celiac, SMA, and renal arteries are widely patent. The left renal artery is duplicated. The BUSHRA appears patent. No central pulmonary embolus is evident. There is scattered subsegmental volume loss within both amador gs. No pleural effusion or pneumothorax is evident. No pathologically enlarged lymph node is evident. There is fatty infiltration of the liver. The gallbladder is surgically absent. The pancreas and ad renal glands are normal appearing. The spleen is normal appearing. No pathologically enlarged lymph nodes or free fluid is evident. There is scattered degenerative and osteoarthritic change. No definite acute osseous abnormality is evident. IMPRESSION: 1. 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 2. No definite central pulmonary embolus. 3. Fatty liver. POS: BH
== END 2018-11-06 05:18 | disposition home or self-care (01) ==
LOC: BURERS 01:39
DX: K21.0 Gastro-esophageal reflux disease with esophagitis (principal); R07.89 Other chest pain; I10 Essential (primary) hypertension; J45.909 Unspecified asthma, uncomplicated; Z87.891 Personal history of nicotine dependence
CPT/HCPCS: 36415; 71045; 71275; 80053; 83880; 84484; 85025; 85379; 93005; C9113; J1885; J2405

== ENCOUNTER 2018-11-06 19:14 | Emergency (ER) | payer MEDICARE, OTHER ==
[2018-11-06 19:53] LABS: Hemoglobin 10.2 g/dL (12.0-16.0); Mean Corpuscular Hemoglobin 27.5 pg (27.0-31.0); Mean Corpuscular Volume 83.4 fL (78.0-98.0); Mean Platelet Volume 7.2 fL (7.4-10.4); Platelet Count 260 thou/uL (130-400); RBC Distribution Width 18.7 % (11.5-14.5); Red Blood Cell (RBC) Count 3.71 mill/uL (4.20-5.40); White Blood Cell (WBC) Count 12.6 thou/uL (4.8-10.8)
[2018-11-06 20:14] LABS: #Basophils 0.1 thou/uL (0.0-0.2); #Eosinphils 0.2 thou/uL (0.0-0.7); #Lymphocytes 2.5 thou/uL (1.20-3.40); #Monocytes 0.8 thou/uL (0.11-0.59); %Basophils 0.9 % (0.0-1.0); %Eosinophils 1.7 % (0.0-10.0); %Lymphocytes 19.5 % (21.0-51.0); %Monocytes 6.4 % (0.0-10.0); %Neutrophils 71.5 % (42.0-75.0); Basophilic Stippling SLIGHT = 1-2 cells (100X) (None Seen); Hypochromia SLIGHT = 6-15 cells (100X) (0-5/hpf); MDiff Complete? YES; Macrocytosis SLIGHT = 6-15 cells (100X) (0-5/hpf); Microcytosis MODERATE=15-30 cells (100X) (0-5/hpf)
[2018-11-06 20:17] LABS: ALT (SGPT) 15 U/L (8-55); AST (SGOT) 24 U/L (5-34); Albumin 3.3 g/dL (3.4-4.8); Alkaline Phosphatase 94 U/L (40-150); Anion Gap 12 mmol/L (10-20); BUN (Urea Nitrogen) 9 mg/dL (9.8-20.1); Bilirubin, Total 0.3 mg/dL (0.2-1.2); Calc. Creatinine Clearance 0 mL/min (70-130); Calcium 8.4 mg/dL (7.8-10.44); Carbon Dioxide 26 mmol/L (23-31); Chloride 109 mmol/L (98-107); Estimated GFR-MDRD 87; Globulin 2.2 g/dL (2.4-3.5); Glucose 83 mg/dL (80-115); Potassium 3.8 mmol/L (3.5-5.1); Protein, Total 5.5 g/dL (6.0-8.3); Sodium 143 mmol/L (136-145)
[2018-11-06 20:33] LABS: Thyroid Stimulating Hormone 1.6701 uIU/mL (0.35-4.94)
[2018-11-06] MEDS ORDERED: Lidocaine Viscous Sol 2% 15 ml UD Cup ONE (20:52)
[2018-11-06] MEDS ORDERED: Ondansetron ODT 4 MG TAB ONE (20:52)
[2018-11-06] MEDS ORDERED: Morphine 4 MG/ML VIAL ONE (20:52)
[2018-11-06] MEDS ORDERED: Mag-Al Plus 1200 MG/1200 MG/120 MG/30 ML UDCUP ONE (20:52)
[2018-11-07 13:18] LABS: Free T4 (Free Thyroxine) 0.94 ng/dL (0.70-1.48); Free Thyroxine Index 1.89 (1.4-3.1); T4 6.8 ug/dL (4.87-11.72)
== END 2018-11-06 21:03 | disposition home or self-care (01) ==
LOC: BURERS 19:14
DX: G89.29 Other chronic pain (principal); M54.2 Cervicalgia; K21.9 Gastro-esophageal reflux disease without esophagitis; I10 Essential (primary) hypertension; J45.909 Unspecified asthma, uncomplicated; Z87.891 Personal history of nicotine dependence; Z79.899 Other long term (current) drug therapy; Z79.51 Long term (current) use of inhaled steroids
CPT/HCPCS: 36415; 71045; 71275; 80053; 83880; 84436; 84439; 84443; 84479; 84481; 84484; 85025; 85379; 85652; 93005; 96372; 96374; 96375; C9113; J1885; J2270; J2405; Q0162

== ENCOUNTER 2018-11-29 09:01 | Emergency (ER) | payer MEDICARE, OTHER ==
[2018-11-29] MEDS ORDERED: Dexamethasone 4 mg/ml Vial ONE (09:52)
[2018-11-29] MEDS ORDERED: HYDROmorphone 0.5 MG/0.5 ML SYRINGE ONE (09:52)
[2018-11-29 10:03] LABS: ALT (SGPT) 11 U/L (8-55); AST (SGOT) 27 U/L (5-34); Albumin 3.4 g/dL (3.4-4.8); Alkaline Phosphatase 119 U/L (40-150); Anion Gap 14 mmol/L (10-20); BUN (Urea Nitrogen) 14 mg/dL (9.8-20.1); Bilirubin, Total 0.5 mg/dL (0.2-1.2); Calc. Creatinine Clearance 0 mL/min (70-130); Calcium 8.7 mg/dL (7.8-10.44); Carbon Dioxide 24 mmol/L (23-31); Chloride 106 mmol/L (98-107); Estimated GFR-MDRD 84; Globulin 2.8 g/dL (2.4-3.5); Glucose 112 mg/dL (80-115); Hemoglobin 9.4 g/dL (12.0-16.0); Mean Corpuscular HGB CONC 31.9 g/dL (32.0-36.0); Mean Corpuscular Hemoglobin 25.9 pg (27.0-31.0); Mean Corpuscular Volume 81.1 fL (78.0-98.0); Mean Platelet Volume 7.1 fL (7.4-10.4); Platelet Count 271 thou/uL (130-400); Protein, Total 6.2 g/dL (6.0-8.3); RBC Distribution Width 17.7 % (11.5-14.5); Red Blood Cell (RBC) Count 3.62 mill/uL (4.20-5.40); Sodium 140 mmol/L (136-145); White Blood Cell (WBC) Count 18.5 thou/uL (4.8-10.8)
[2018-11-29 10:13] LABS: Anisocytosis SLIGHT = 6-15 cells (100X) (0-5/hpf); Band 2 % (5-11); Eosinophils 2 % (0-10); Lymphocytes 7 % (21-51); MDiff Complete? YES; Monocytes 3 % (0-10); Neutrophil 86 % (42-75); Platelet Morphology Comment Appears Adequate
== END 2018-11-29 11:10 | disposition home or self-care (01) ==
LOC: BURERS 09:01
DX: M06.9 Rheumatoid arthritis, unspecified (principal); I10 Essential (primary) hypertension; J45.909 Unspecified asthma, uncomplicated; Z87.891 Personal history of nicotine dependence; Z79.891 Long term (current) use of opiate analgesic; Z79.51 Long term (current) use of inhaled steroids; Z79.899 Other long term (current) drug therapy
CPT/HCPCS: 36415; 80053; 85025; 96372; J1100; J1170

== ENCOUNTER 2018-12-25 17:44 | Emergency (ER) | payer MEDICARE, OTHER ==
[2018-12-25] MEDS ORDERED: Aspirin Chewable 81 MG TAB ONE (18:10)
[2018-12-25] MEDS ORDERED: Fentanyl 100 MCG/2 ML VIAL ONE (18:19)
[2018-12-25] MEDS ORDERED: Metoprolol Tartrate 5 MG/5 ML VIAL ONE ×3 (18:27→18:47)
[2018-12-25 18:35] LABS: ALT (SGPT) 18 U/L (8-55); AST (SGOT) 24 U/L (5-34); Albumin 3.7 g/dL (3.4-4.8); Alkaline Phosphatase 118 U/L (40-150); Anion Gap 15 mmol/L (10-20); BUN (Urea Nitrogen) 9 mg/dL (9.8-20.1); Bilirubin, Total 0.3 mg/dL (0.2-1.2); Calc. Creatinine Clearance 0 mL/min (70-130); Carbon Dioxide 24 mmol/L (23-31); Chloride 105 mmol/L (98-107); Estimated GFR-MDRD 78; Globulin 2.9 g/dL (2.4-3.5); Glucose 130 mg/dL (80-115); Potassium 4.4 mmol/L (3.5-5.1); Protein, Total 6.6 g/dL (6.0-8.3); Sodium 140 mmol/L (136-145)
[2018-12-25 18:43] LABS: #Basophils 0.1 thou/uL (0.0-0.2); #Eosinphils 0.1 thou/uL (0.0-0.7); #Lymphocytes 2.1 thou/uL (1.20-3.40); #Monocytes 0.7 thou/uL (0.11-0.59); #Neutrophils 13.8 thou/uL (1.40-6.50); %Basophils 0.8 % (0.0-1.0); %Eosinophils 0.9 % (0.0-10.0); %Lymphocytes 12.2 % (21.0-51.0); %Neutrophils 82.1 % (42.0-75.0); Hemoglobin 9.3 g/dL (12.0-16.0); Hypochromia MODERATE=16-30 cells (100X) (0-5/hpf); Large Platelets SLIGHT; MDiff Complete? YES; Macrocytosis SLIGHT = 6-15 cells (100X) (0-5/hpf); Mean Corpuscular HGB CONC 30.1 g/dL (32.0-36.0); Mean Corpuscular Hemoglobin 24.3 pg (27.0-31.0); Mean Corpuscular Volume 80.9 fL (78.0-98.0); Mean Platelet Volume 6.3 fL (7.4-10.4); Microcytosis MODERATE=15-30 cells (100X) (0-5/hpf); Platelet Count 458 thou/uL (130-400); Polychromasia SLIGHT = 2-3 cells (100X) (0-2/hpf); RBC Distribution Width 18.8 % (11.5-14.5); Red Blood Cell (RBC) Count 3.81 mill/uL (4.20-5.40); White Blood Cell (WBC) Count 16.7 thou/uL (4.8-10.8)
[2018-12-25 19:28] LABS: Clarity SLIGHTLY (Clear)
[2018-12-25 19:29] LABS: Glucose, Urine (Dipstick) Negative (Negative); Leukocyte Small (Negative); Nitrite Negative (Negative); Protein, Urine (Dipstick) Negative (Neg-Trace); Specific Gravity, Urine 1.006 (1.002-1.036); Urobilinogen 0.2 mg/dL (0.2-1.0); pH, Urine 6.5 (5.0-9.0)
[2018-12-25 19:30] LABS: Bilirubin Negative (Negative); Blood, Urine Negative (Negative)
[2018-12-25 19:33] LABS: Bacteria/HPF 1+ HPF (None Seen); Crystals/HPF None Seen HPF (Negative); Hyaline Casts/LPF NONE SEEN LPF (0-3 Hyaline); Other Casts/LPF None Seen LPF (0-3 Hyaline); Oval Fat Bodies/HPF None Seen HPF (None Seen); RBC/HPF None Seen HPF (0-3); Renal Epithelial None Seen HPF (0-3); Sperm/HPF None Seen HPF (None Seen); Squamous Epithelial None Seen HPF (0-3); Transitional Epithelial NONE SEEN HPF (0-3); Trichomonas/HPF None Seen HPF (None Seen); WBC/HPF 0-3 HPF (0-3); Yeast-All Forms None Seen HPF (None Seen)
--- NOTE | 2018-12-25 21:31 | RAD ---
PORTABLE CHEST: 12/25/18 Comparison is made with a 11/06/18 study. The heart size is unchanged and is normal. There is no vascular congestion, edema, or pleural effusio n. Haziness over the lower lungs is thought to be due to the overlying soft tissues. No acute infiltr ates were appreciated. The bony structures appear normal. IMPRESSION: No acute thoracic findings. POS: HOME
== END 2018-12-25 19:25 | disposition short-term general hospital (02) ==
LOC: BURERS 17:44
DX: R07.2 Precordial pain (principal); I10 Essential (primary) hypertension; J45.909 Unspecified asthma, uncomplicated; Z87.891 Personal history of nicotine dependence; Z79.51 Long term (current) use of inhaled steroids; Z79.899 Other long term (current) drug therapy
CPT/HCPCS: 71045; 80053; 81003; 81015; 83605; 84484; 85025; 85379; 87040; 93005; 94760; 96374; 96375; J3010

== ENCOUNTER 2019-03-18 16:50 | Emergency (ER) | payer MEDICARE, OTHER ==
[2019-03-18] MEDS ORDERED: Ketorolac Tromethamine 30 MG/ML VIAL ONE (17:38)
[2019-03-18] MEDS ORDERED: Morphine 4 MG/ML VIAL ONE (17:38)
[2019-03-18 17:57] LABS: Clarity Cloudy (Clear); Leukocyte Negative (Negative); Nitrite Negative (Negative); Specific Gravity, Urine 1.025 (1.005-1.030); pH, Urine 5.5 (5.0-9.0)
[2019-03-18 17:58] LABS: Bacteria/HPF Rare-Few HPF (None Seen); Bilirubin Moderate (Negative); Blood, Urine Negative (Negative); Crystals/HPF None Seen HPF (Negative); Glucose, Urine (Dipstick) Negative (Negative); Hyaline Casts/LPF NONE SEEN LPF (0-3 Hyaline); Other Casts/LPF None Seen LPF (0-3 Hyaline); Oval Fat Bodies/HPF None Seen HPF (None Seen); Protein, Urine (Dipstick) 100 mg/dL (Neg-Trace); RBC/HPF 0-3 HPF (0-3); Renal Epithelial None Seen HPF (0-3); Sperm/HPF None Seen HPF (None Seen); Transitional Epithelial NONE SEEN HPF (0-3); Trichomonas/HPF None Seen HPF (None Seen); WBC/HPF 0-3 HPF (0-3); Yeast-All Forms None Seen HPF (None Seen)
[2019-03-18 18:01] LABS: ALT (SGPT) 20 U/L (8-55); AST (SGOT) 27 U/L (5-34); Alkaline Phosphatase 134 U/L (40-150); Anion Gap 16 mmol/L (10-20); BUN (Urea Nitrogen) 9 mg/dL (9.8-20.1); Bilirubin, Total 0.4 mg/dL (0.2-1.2); Calc. Creatinine Clearance 0 mL/min (70-130); Calcium 9.6 mg/dL (7.8-10.44); Carbon Dioxide 25 mmol/L (23-31); Chloride 103 mmol/L (98-107); Estimated GFR-MDRD 80; Glucose 117 mg/dL (80-115); Potassium 3.8 mmol/L (3.5-5.1); Sodium 140 mmol/L (136-145)
[2019-03-18 18:08] LABS: #Basophils 0.1 thou/uL (0.0-0.2); #Eosinphils 0.2 thou/uL (0.0-0.7); #Lymphocytes 2.9 thou/uL (1.20-3.40); #Monocytes 1.2 thou/uL (0.11-0.59); #Neutrophils 8.7 thou/uL (1.40-6.50); %Basophils 1.1 % (0.0-1.0); %Eosinophils 1.8 % (0.0-10.0); %Lymphocytes 21.7 % (21.0-51.0); %Monocytes 9.1 % (0.0-10.0); %Neutrophils 66.3 % (42.0-75.0); Hemoglobin 11.8 g/dL (12.0-16.0); Hypochromia SLIGHT = 6-15 cells (100X) (0-5/hpf); Large Platelets SLIGHT; MDiff Complete? YES; Macrocytosis SLIGHT = 6-15 cells (100X) (0-5/hpf); Mean Corpuscular HGB CONC 29.4 g/dL (32.0-36.0); Mean Corpuscular Hemoglobin 24.9 pg (27.0-31.0); Mean Corpuscular Volume 84.7 fL (78.0-98.0); Mean Platelet Volume 6.4 fL (7.4-10.4); Microcytosis SLIGHT = 6-15 cells (100X) (0-5/hpf); Platelet Clumps SLIGHT; Platelet Count 586 thou/uL (130-400); Polychromasia SLIGHT = 2-3 cells (100X) (0-2/hpf); RBC Distribution Width 25.3 % (11.5-14.5); Red Blood Cell (RBC) Count 4.75 mill/uL (4.20-5.40); White Blood Cell (WBC) Count 13.2 thou/uL (4.8-10.8)
== END 2019-03-18 18:30 | disposition home or self-care (01) ==
LOC: BURERS 16:50
DX: M54.5 Low back pain (principal); I10 Essential (primary) hypertension; J45.909 Unspecified asthma, uncomplicated; Z87.891 Personal history of nicotine dependence; Z79.51 Long term (current) use of inhaled steroids; Z79.899 Other long term (current) drug therapy
CPT/HCPCS: 80053; 81003; 81015; 85025; 87086; J1885; J2270

== ENCOUNTER 2019-07-12 22:31 | Emergency (ER) | payer MEDICARE, OTHER ==
[2019-07-12] MEDS ORDERED: Prochlorperazine 10 MG/2 ML VIAL ONE (23:00)
--- NOTE | 2019-07-13 08:10 | CT ---
PRELIMINARY REPORT/[facility]/EMERGENCY AFTER HOURS PROCEDURE INFORMATION: Exam: CT Head Without Contrast Exam date and time: 07/12/2019 11:07 PM Clinical history: 63 years old, female; Pain; Headache not specified TECHNIQUE: Imaging protocol: Computed tomography of the head without contrast. Radiation optimization: All CT scans at this facility use at least one of these dose optimization mayra hniques: automated exposure control; mA and/or kV adjustment per patient size (includes targeted exam s where dose is matched to clinical indication); or iterative reconstruction. COMPARISON: No relevant prior studies available. FINDINGS: Brain: No hemorrhage. No significant white matter disease. No edema. Ventricles: No ventriculomegaly. Bones/joints: Unremarkable. No acute fracture. Sinuses: Visualized sinuses are unremarkable. No fluid levels. Mastoid air cells: Visualized mastoid air cells are well aerated. Soft tissues: Unremarkable. IMPRESSION: No acute intracranial abnormality. Thank you for allowing us to participate in the care of your patient. Dictated and Authenticated by: Octavia Tamayo MD 07/12/2019 11:31 PM Central Time ([place] & [place]) FINAL REPORT CT BRAIN WITHOUT CONTRAST: I agree with the preliminary report given by . CODE QA POS: [facility]
== END 2019-07-13 00:39 | disposition home or self-care (01) ==
LOC: BURERS 22:31
DX: R51 Headache (principal); I10 Essential (primary) hypertension; J45.909 Unspecified asthma, uncomplicated; F17.200 Nicotine dependence, unspecified, uncomplicated; Z79.899 Other long term (current) drug therapy; Z79.51 Long term (current) use of inhaled steroids
CPT/HCPCS: 70450; 96365; 96375; J0780

== ENCOUNTER 2019-11-09 18:44 | Emergency (ER) | payer MEDICARE, OTHER ==
[2019-11-09] MEDS ORDERED: Triamcinolone 40 MG/ML VIAL ONE (19:52)
== END 2019-11-09 20:35 | disposition home or self-care (01) ==
LOC: BURERS 18:44
DX: L50.9 Urticaria, unspecified (principal); I10 Essential (primary) hypertension; J45.909 Unspecified asthma, uncomplicated; M06.9 Rheumatoid arthritis, unspecified; Z79.899 Other long term (current) drug therapy
CPT/HCPCS: 96372; 99282; J3301

== ENCOUNTER 2020-10-19 12:17 | Outpatient (CLI) | payer MEDICARE, OTHER ==
--- NOTE | 2020-10-19 13:32 | RAD ---
RIGHT SHOULDER 3 VIEWS: Date: 10/19/2020 No fracture, dislocation, or AC joint widening seen. Some minor irregularity of the greater tubercle is likely long-term. There is no impressive amount of arthritic change. The visible adjacent ribs omayra ear intact. IMPRESSION: No significant finding. POS: HOME
== END 2020-10-19 12:18 | disposition home or self-care (01) ==
LOC: BURRAD 12:17
PROVIDERS: ATTEND Family Medicine
DX: M25.511 Pain in right shoulder (principal)

== ENCOUNTER 2020-12-05 11:37 | Emergency (ER) | payer MEDICARE, OTHER ==
[2020-12-05] MEDS ORDERED: Orphenadrine Citrate 60 MG/2 ML VIAL ONE (12:07)
[2020-12-05] MEDS ORDERED: HYDROcodone/Acetaminophen 10/325 mg Tablet ONE (12:07)
[2020-12-05] MEDS ORDERED: Morphine 2 MG/ML VIAL ONE (13:15)
== END 2020-12-05 13:22 | disposition home or self-care (01) ==
LOC: BURERS 11:37
DX: M54.6 Pain in thoracic spine (principal); M06.9 Rheumatoid arthritis, unspecified; Z79.899 Other long term (current) drug therapy; Z79.52 Long term (current) use of systemic steroids; I10 Essential (primary) hypertension; J45.909 Unspecified asthma, uncomplicated; F17.200 Nicotine dependence, unspecified, uncomplicated
CPT/HCPCS: 72128; J2270; 96372; 96374; J2360

== ENCOUNTER 2021-03-01 07:55 | Emergency (ER) | payer MEDICARE, OTHER ==
[2021-03-01] MEDS ORDERED: Orphenadrine Citrate 60 MG/2 ML VIAL ONE (08:14)
[2021-03-01] MEDS ORDERED: HYDROcodone/Acetaminophen 10/325 mg Tablet ONE (08:26)
[2021-03-01] MEDS ORDERED: Ketorolac Tromethamine 30 MG/ML VIAL ONE ×2 (08:44→09:55)
[2021-03-01 09:01] LABS: #Basophils 0.1 thou/uL (0.0-0.2); #Eosinphils 0.5 thou/uL (0.0-0.7); #Lymphocytes 2.2 thou/uL (1.20-3.40); #Monocytes 1.2 thou/uL (0.11-0.59); #Neutrophils 6.1 thou/uL (1.40-6.50); %Basophils 1.2 % (0.0-1.0); %Eosinophils 4.6 % (0.0-10.0); %Lymphocytes 22.1 % (21.0-51.0); %Monocytes 11.9 % (0.0-10.0); %Neutrophils 60.1 % (42.0-75.0); Hemoglobin 8.7 g/dL (12.0-16.0); Mean Corpuscular HGB CONC 30.8 g/dL (32.0-36.0); Mean Corpuscular Volume 87.7 fL (78.0-98.0); Mean Platelet Volume 6.3 fL (7.4-10.4); Platelet Count 311 thou/uL (130-400); RBC Distribution Width 18.7 % (11.5-14.5); Red Blood Cell (RBC) Count 3.23 mill/uL (4.20-5.40); White Blood Cell (WBC) Count 10.1 thou/uL (4.8-10.8)
[2021-03-01 09:15] LABS: Anion Gap 16 mmol/L (10-20); BUN (Urea Nitrogen) 6 mg/dL (9.8-20.1); Calc. Creatinine Clearance 0 mL/min (70-130); Calcium 8.7 mg/dL (7.8-10.44); Carbon Dioxide 21 mmol/L (23-31); Chloride 109 mmol/L (98-107); Glucose 116 mg/dL (80-115); Potassium 3.8 mmol/L (3.5-5.1); Sodium 142 mmol/L (136-145)
[2021-03-01 09:18] LABS: Anisocytosis SLIGHT = 6-15 cells (100X) (0-5/hpf); Hypochromia MODERATE=16-30 cells (100X) (0-5/hpf); MDiff Complete? YES; Microcytosis MODERATE=15-30 cells (100X) (0-5/hpf); Platelet Morphology Comment Appears Adequate; Target Cells SLIGHT = 2-5 cells (100X) (0-1/hpf); Tear Drops SLIGHT = 2-5 cells (100X) (0-1/hpf)
[2021-03-01] MEDS ORDERED: hydrOXYzine 25 MG TAB ONE (09:18)
[2021-03-01] MEDS ORDERED: Fentanyl 100 MCG/2 ML VIAL ONE (09:55)
[2021-03-01] MEDS ORDERED: predniSONE 20 MG TAB ONE (09:55)
== END 2021-03-01 10:44 | disposition home or self-care (01) ==
LOC: BURERS 07:55
DX: M06.9 Rheumatoid arthritis, unspecified (principal); D64.9 Anemia, unspecified; I11.0 Hypertensive heart disease with heart failure; I50.9 Heart failure, unspecified; J45.909 Unspecified asthma, uncomplicated; F17.210 Nicotine dependence, cigarettes, uncomplicated; Z79.899 Other long term (current) drug therapy
CPT/HCPCS: 36415; 80048; 82550; 83880; 85025; 96372; 99283; J1885; J2360; J3010; J7512

== ENCOUNTER 2021-03-02 14:56 | Emergency (ER) | payer MEDICARE, OTHER | END 2021-03-02 15:10 | disposition left against medical advice (07) | LOC: BURERS 14:56 | DX: Z53.21 Procedure and treatment not carried out due to patient leaving prior to being seen by health care provider (principal) ==

== ENCOUNTER 2021-07-17 10:47 | Emergency (ER) | payer MEDICARE, OTHER ==
[2021-07-17] MEDS ORDERED: Morphine 4 MG/ML VIAL ONE (11:32)
== END 2021-07-17 11:35 | disposition home or self-care (01) ==
LOC: BURERS 10:47
DX: G89.29 Other chronic pain (principal); M54.50 Low back pain, unspecified; K21.9 Gastro-esophageal reflux disease without esophagitis; I50.9 Heart failure, unspecified; J45.909 Unspecified asthma, uncomplicated; M06.9 Rheumatoid arthritis, unspecified; Z79.899 Other long term (current) drug therapy
CPT/HCPCS: 96372; 99283; J2270

== ENCOUNTER 2021-11-05 00:35 | Emergency (ER) | payer MEDICARE ==
[2021-11-05 01:20] LABS: #Basophils 0.1 thou/uL (0.0-0.2); #Eosinphils 0.1 thou/uL (0.0-0.7); #Lymphocytes 2.7 thou/uL (1.20-3.40); #Monocytes 0.7 thou/uL (0.11-0.59); #Neutrophils 8.8 thou/uL (1.40-6.50); %Basophils 0.6 % (0.0-1.0); %Eosinophils 0.7 % (0.0-10.0); %Lymphocytes 21.5 % (21.0-51.0); %Monocytes 5.9 % (0.0-10.0); %Neutrophils 71.4 % (42.0-75.0); Hemoglobin 7.3 g/dL (12.0-16.0); Mean Corpuscular HGB CONC 31.2 g/dL (32.0-36.0); Mean Corpuscular Hemoglobin 22.1 pg (27.0-31.0); Mean Platelet Volume 7.4 fL (7.4-10.4); Platelet Count 307 thou/uL (130-400); RBC Distribution Width 19.1 % (11.5-14.5); Red Blood Cell (RBC) Count 3.28 mill/uL (4.20-5.40); White Blood Cell (WBC) Count 12.3 thou/uL (4.8-10.8)
[2021-11-05 01:26] LABS: ALT (SGPT) 23 U/L (8-55); AST (SGOT) 31 U/L (5-34); Albumin 3.8 g/dL (3.4-4.8); Alkaline Phosphatase 121 U/L (40-110); Anion Gap 14 mmol/L (10-20); BUN (Urea Nitrogen) 11 mg/dL (9.8-20.1); Bilirubin, Total Less than 0.2 mg/dL (0.2-1.2); Calc. Creatinine Clearance 0 mL/min (70-130); Calcium 8.8 mg/dL (7.8-10.44); Carbon Dioxide 23 mmol/L (23-31); Chloride 106 mmol/L (98-107); Glucose 100 mg/dL (80-115); Lipase 68 U/L (8-78); Potassium 4.3 mmol/L (3.5-5.1); Protein, Total 6.8 g/dL (5.8-8.1); Sodium 139 mmol/L (136-145)
[2021-11-05] MEDS ORDERED: Heparin 10,000 UNITS/1 ML VIAL ONE (01:55)
[2021-11-05] MEDS ORDERED: Nitroglycerin 2% Ointment 1 INCH/1 GM Packet ONE (01:55)
[2021-11-05] MEDS ORDERED: Heparin 25,000 units/D5W 500 ML ONE (01:55)
[2021-11-05 02:02] LABS: CKMB 3.5 ng/mL (0-6.6)
[2021-11-05 02:29] LABS: SARS-CoV-2 NAA Rapid Test DETECTED (NotDetected)
[2021-11-05 02:33] LABS: Anisocytosis MODERATE=16-30 cells (100X) (0-5/hpf); Hypochromia SLIGHT = 6-15 cells (100X) (0-5/hpf); MDiff Complete? YES; Microcytosis MODERATE=15-30 cells (100X) (0-5/hpf)
== END 2021-11-05 03:23 | disposition short-term general hospital (02) ==
LOC: BURERS 00:35
DX: U07.1 COVID-19 (principal); I21.4 Non-ST elevation (NSTEMI) myocardial infarction; D64.9 Anemia, unspecified; I50.9 Heart failure, unspecified; K21.9 Gastro-esophageal reflux disease without esophagitis; J45.909 Unspecified asthma, uncomplicated; F17.210 Nicotine dependence, cigarettes, uncomplicated; Z79.899 Other long term (current) drug therapy
CPT/HCPCS: 71045; 80053; 82553; 83690; 83880; 84484; 85025; 85610; 85730; 93005; 94760; 96365; 96375; 99285; U0002; J1644

== ENCOUNTER 2023-01-18 20:44 | Emergency (ER) | payer MEDICARE, OTHER ==
[~2023-01-18 20:44] MED LIST changes: +Iopamidol 370 76% 100 ML VIAL ONE; -predniSONE 20 MG TAB ONE
[2023-01-18] MEDS ORDERED: Acetaminophen 500 MG TAB ONE (21:55)
[2023-01-18] MEDS ORDERED: Aspirin Chewable 81 MG TAB ONE (21:55)
[2023-01-18 21:56] LABS: #Basophils 0.1 thou/uL (0.0-0.2); #Lymphocytes 1.1 thou/uL (1.20-3.40); #Monocytes 0.4 thou/uL (0.11-0.59); %Basophils 0.7 % (0.0-1.0); %Eosinophils 0.4 % (0.0-10.0); %Lymphocytes 10.6 % (21.0-51.0); %Monocytes 3.3 % (0.0-10.0); Hemoglobin 12.1 g/dL (12.0-16.0); Mean Corpuscular HGB CONC 32.2 g/dL (32.0-36.0); Mean Corpuscular Hemoglobin 31.4 pg (27.0-31.0); Mean Corpuscular Volume 97.7 fl (78.0-98.0); Mean Platelet Volume 8.4 fL (7.4-10.4); Platelet Count 182 10x3/uL (130-400); RBC Distribution Width 14.3 % (11.5-14.5); Red Blood Cell (RBC) Count 3.86 mill/uL (4.20-5.40); White Blood Cell (WBC) Count 10.6 10x3/uL (4.8-10.8)
[2023-01-18 22:15] LABS: Calc. Creatinine Clearance 0 mL/min (70-130); Chloride 109 mmol/L (98-107); Globulin 2.7 g/dL (2.4-3.5); Lipase 36 U/L (8-78)
[2023-01-18 22:51] LABS: ALT (SGPT) 25 U/L (8-55); AST (SGOT) 30 U/L (5-34); Albumin 3.8 g/dL (3.4-4.8); Alkaline Phosphatase 128 U/L (40-110); Anion Gap 10 mmol/L (10-20); BUN (Urea Nitrogen) 17 mg/dL (9.8-20.1); Bilirubin, Total 0.5 mg/dL (0.2-1.2); Calcium 8.7 mg/dL (7.8-10.44); Carbon Dioxide 22 mmol/L (23-31); Estimated GFR 67; Glucose 110 mg/dL (80-115); Potassium 4.3 mmol/L (3.5-5.1); Protein, Total 6.5 g/dL (5.8-8.1); Sodium 137 mmol/L (136-145)
== END 2023-01-18 23:59 | disposition home or self-care (01) ==
LOC: BURERS 20:44
DX: R07.89 Other chest pain (principal); K21.9 Gastro-esophageal reflux disease without esophagitis; I50.9 Heart failure, unspecified; F17.210 Nicotine dependence, cigarettes, uncomplicated; Z79.899 Other long term (current) drug therapy
CPT/HCPCS: 36415; 71045; 71275; 80053; 83690; 83880; 84484; 85025; 85379; 93005; 94760; Q9967

== ENCOUNTER 2024-04-10 14:43 | Emergency (ER) | payer MEDICARE, MEDICAID | END 2024-04-10 16:20 | disposition home or self-care (01) | LOC: BURERS 14:43 | DX: S09.90XA Unspecified injury of head, initial encounter (principal); S43.401A Unspecified sprain of right shoulder joint, initial encounter; S00.93XA Contusion of unspecified part of head, initial encounter; K21.9 Gastro-esophageal reflux disease without esophagitis; J45.909 Unspecified asthma, uncomplicated; I25.10 Atherosclerotic heart disease of native coronary artery without angina pectoris; M06.9 Rheumatoid arthritis, unspecified; N32.81 Overactive bladder; I50.9 Heart failure, unspecified; I25.2 Old myocardial infarction; F17.210 Nicotine dependence, cigarettes, uncomplicated; W01.198A Fall on same level from slipping, tripping and stumbling with subsequent striking against other object, initial encounter; Y93.01 Activity, walking, marching and hiking | CPT/HCPCS: 70450; 71045; 72125 ==